=== PATIENT | female | born 1950 | race Caucasian/White ===

== ENCOUNTER 2017-09-14 13:23 | Outpatient (CLI) | payer MEDICARE, BC | END 2017-09-14 13:24 | disposition home or self-care (01) | LOC: BICMAMMO 13:23 | PROVIDERS: ATTEND Plastic Surgery | DX: N63.12 Unspecified lump in the right breast, upper inner quadrant (principal); Z85.3 Personal history of malignant neoplasm of breast ==

== ENCOUNTER → 2017-09-19 | Day surgery (SDC) | payer MEDICARE, BC | LOC: BICULT 07:09 | PROVIDERS: ATTEND Plastic Surgery | PROC: 0HBT3ZX Excision of Right Breast, Percutaneous Approach, Diagnostic (ICD-10-PCS; principal; 2017-09-19) | DX: C50.211 Malignant neoplasm of upper-inner quadrant of right female breast (principal); Z98.890 Other specified postprocedural states | CPT/HCPCS: 19083; 88305; 88341; 88342 ==

== ENCOUNTER 2018-03-29 16:43 | Emergency (ER) | payer MEDICARE, BC ==
[2018-03-29] MEDS ORDERED: Nitrofurantoin Monohyd/M-Cryst 100 MG CAP PO SCH (18:00)
== END 2018-03-29 19:16 | disposition home or self-care (01) ==
LOC: ERS 16:43
DX: N39.0 Urinary tract infection, site not specified (principal); E03.9 Hypothyroidism, unspecified
CPT/HCPCS: 96360

== ENCOUNTER 2018-07-30 10:06 | Inpatient (IN) | payer MEDICARE, BC ==
[2018-07-30 11:10] LABS: Hemoglobin 14.7 g/dL (12.0-16.0); Mean Corpuscular Hemoglobin 29.6 pg (27.0-31.0); Mean Corpuscular Volume 92.4 fL (78.0-98.0); Mean Platelet Volume 7.8 fL (7.4-10.4); Platelet Count 330 thou/uL (130-400); RBC Distribution Width 12.8 % (11.5-14.5); Red Blood Cell (RBC) Count 4.97 mill/uL (4.20-5.40); White Blood Cell (WBC) Count 7.7 thou/uL (4.8-10.8)
--- NOTE | 2018-07-30 11:28 | RAD ---
FXR Chest 1 View Portable History: [Dyspnea] Comparison: Radiograph 2015 Findings: Large layering right pleural effusion. Abnormal masslike opacity left infrahilar region. Ag e-indeterminate right posterior rib fractures. Cardiac silhouette is pushed to the left. Impression: 1. Left perihilar opacity concerning for underlying malignant process. CT of the chest is recommended . 2. Large layering right pleural effusion can be can be malignant nature or due to infection. Code lung nodule
[2018-07-30 11:35] LABS: Band 3 % (5-11); Lymphocytes 16 % (21-51); MDiff Complete? YES; Monocytes 5 % (0-10); Neutrophil 76 % (42-75); Platelet Morphology Comment Appears Adequate
[2018-07-30 11:36] LABS: ALT (SGPT) Less than 7 U/L (8-55); AST (SGOT) 23 U/L (5-34); Alkaline Phosphatase 137 U/L (40-150); Anion Gap 17 mmol/L (10-20); BUN (Urea Nitrogen) 10 mg/dL (9.8-20.1); Bilirubin, Total 0.4 mg/dL (0.2-1.2); CK (CPK) 46 U/L (29-168); Calc. Creatinine Clearance 0 mL/min (70-130); Carbon Dioxide 30 mmol/L (23-31); Chloride 97 mmol/L (98-107); Estimated GFR-MDRD Greater than 90; Globulin 3.2 g/dL (2.4-3.5); Glucose 113 mg/dL (80-115); Potassium 3.4 mmol/L (3.5-5.1); Protein, Total 7.2 g/dL (6.0-8.3); Sodium 141 mmol/L (136-145)
--- NOTE | 2018-07-30 12:23 | CT ---
FCT arteriogram chest with IV contrast and 3-D map imaging HISTORY: Dyspnea. Weakness. Abnormal chest x-ray. Right breast cancer. FINDINGS: There is good contrast opacification pulmonary arteries and thoracic aorta with normal bran todd of the great vessels at the aortic arch. Large amount of right pleural fluid with severe compre ssive atelectasis of the right lung, especially the right lower lobe. Multiple masses involving the r ight middle and upper lobes. The largest is at the right anterior lung base, measuring up to 5.1 cm. Large mass at the medial aspect superior segment left lower lobe is 5.1 x 3.6 cm greatest diameters. A 0.6 cm subpleural nodule is present within the posterior aspect of the left upper lobe. Large destructive mass involving the sternum measures up to 7.4 cm in length by 5.1 cm depth by 4.9 c m. Right breast prosthesis is apparent. Enlarged lymph nodes of the mediastinum including a 1.4 cm prevascular lymph node, a 1.8 cm precarina l lymph node, and a 1.9 cm subcarinal lymph node. Multiple heterogeneous low-density masses within the liver measure up to 2.7 cm in the lateral dome. Degenerative changes of the thoracic spine. Lytic lesion involves the anterior superior aspect of the T4 vertebral body. Old healed right rib fra ctures. IMPRESSION: Extensive metastatic disease, involving masses of each lung, sternal and thoracic vertebr al osseous lesions, mediastinal adenopathy, and liver masses. Large amount of right pleural fluid and compressive atelectasis of the right lung.
[2018-07-30] MEDS ORDERED: Acetaminophen 325 MG TAB PO PRN (16:34)
[2018-07-30] MEDS ORDERED: HYDROcodone/Acetaminophen 7.5/325 mg Tablet PO PRN (16:34)
[2018-07-30] MEDS ORDERED: Ondansetron ODT 4 MG TAB PO PRN (16:34)
[2018-07-30] MEDS ORDERED: Zolpidem Tartrate 5 MG TAB PO PRN (16:34)
[2018-07-30 17:05] LABS: Hemoglobin 13.5 g/dL (12.0-16.0); Mean Corpuscular HGB CONC 32.2 g/dL (32.0-36.0); Mean Corpuscular Hemoglobin 29.7 pg (27.0-31.0); Mean Corpuscular Volume 92.4 fL (78.0-98.0); Mean Platelet Volume 7.6 fL (7.4-10.4); Platelet Count 329 thou/uL (130-400); RBC Distribution Width 12.6 % (11.5-14.5); Red Blood Cell (RBC) Count 4.53 mill/uL (4.20-5.40); White Blood Cell (WBC) Count 6.8 thou/uL (4.8-10.8)
[2018-07-30 17:21] LABS: Band 5 % (5-11); Eosinophils 2 % (0-10); Lymphocytes 23 % (21-51); MDiff Complete? YES; Monocytes 8 % (0-10); Neutrophil 62 % (42-75); Platelet Morphology Comment Appears Adequate; RBC Morphology Normal
--- NOTE | 2018-07-30 17:28 | HP ---
PRIMARY CARE PROVIDER: Dr. Felipe Romero. Referred to the [facility] by [facility] for pleural effusion. The patient's history started several weeks ago with pain under right shoulder blade into her right arm. She denies being pleuritic. Then for about 1 to 2 weeks, she has had shortness of breath with lying down. She has had no fever, chills, cough. Her pain has not been pleuritic. PAST MEDICAL HISTORY: Pertinent for breast cancer on the right with a mastectomy on the right by Dr. Rodgers in February of 2016. She had no postoperative radiation or chemotherapy. She had reconstructive surgery by Dr. Jose Soriano on April and completed 12/08. She has also had hypothyroidism on therapy. She has had L-spine surgery with some neuropathic pain in her legs. CURRENT MEDICATIONS: Listed as: 1. Aspirin 81 mg a day. 2. Synthroid 75 mcg a day. 3. Gabapentin 300 mg one in the morning, two at night. ALLERGIES: NONE LISTED. FAMILY HISTORY: Negative for breast cancer. is at bedside. Full code status. She is not ready to make a decision on resuscitation status. No tobacco. No alcohol. REVIEW OF SYSTEMS: GENERAL: She has had some anorexia with some weight loss over the past month. She has had some mild dizziness. No fainting. EYES: No double vision, blurred vision, flashing lights. EARS, NOSE, AND THROAT: No ear pain or drainage. No nasal bleeding. No trouble swallowing. CARDIAC: No true orthopnea, paroxysmal nocturnal dyspnea. No anterior pressure chest pain. RESPIRATION: Shortness of breath with exertion. No history of wheezing. No history of asthma, COPD. GASTROINTESTINAL: Some nausea with present illness. No emesis. No abdominal pain. No diarrhea or constipation. GENITOURINARY: No hematuria or dysuria. MUSCULOSKELETAL: No pain or swelling in her arms or legs. NEUROLOGIC: No stroke, seizures, or focal weakness. PSYCHIATRIC: No current anxiety or depression. SKIN: No bruising, bleeding, or rash. HEME/LYMPH: No tender or swollen lymph nodes in the axilla, inguinal, or cervical area. PHYSICAL EXAMINATION: VITAL SIGNS: Blood pressure 185/79, pulse 97, respirations 24, temperature 98.6. Her sat on room air is mid 90s. HEENT: Examination of her head, eyes, ears, nose, and throat revealed pupils are equal, round, and reactive to light. Extraocular movements are intact. Sclerae are white. Tympanic membranes are clear. Nose is clear. Oral mucous membranes are wet. Dental hygiene is adequate. NECK: Supple without jugular venous distention, adenopathy, or thyromegaly. CHEST: Dull to upper scapula on the right with marked decreased breath sounds in the area of dullness. Breath sounds are clear on the left. HEART: Has a regular rate and rhythm. First and second heart sounds are clear. There are no appreciated murmurs or gallops. ABDOMEN: Soft. Bowel sounds are normal. No hepatosplenomegaly. No mass. No rebound. No bruits. EXTREMITIES: Reveal no cyanosis, clubbing, or edema. PULSES: Carotid, radial, femoral, and dorsalis pedis pulses intact. SKIN: Warm and dry without bruises or rash. HEME/LYMPH: No tender or swollen lymph nodes in the axilla, inguinal, or cervical area. No petechial hemorrhages. NEUROLOGIC: Cranial nerves 2 through 12 are intact. Deep tendon reflexes symmetric. DIAGNOSTIC DATA: Her chest x-ray reveals the lower 2/3 of the right hemithorax are opacified with apparent layer diffusion which goes up into the apical area. The left lung field reveals a probable mass lesion. There is a lytic lesion in the T4 vertebral body. Reviewed by me. EKG, regular sinus rhythm within normal limits. Reviewed by me. LABORATORY DATA: CBC shows normal except for a mild neutrophilia. Comprehensive metabolic profile; decreased potassium 3.4, decreased chloride 97, otherwise unremarkable. ADMITTING DIAGNOSES: 1. Dyspnea secondary to large right pleural effusion. 2. History of breast cancer with apparent metastatic lesions in the liver, lung and thoracic cage. 3. Elevated blood pressure. 4. Hypothyroidism. PLAN: 1. Consult Pulmonology for thoracentesis, both therapeutic and diagnostic. 2. Oncology consult. Job ID: [id number]
[2018-07-30] MEDS ORDERED: Guaifenesin DM 100-10/5 ML UDCUP PO PRN (17:33)
--- NOTE | 2018-07-30 17:55 | RAD ---
Portable chest 1 view 07/30/2018 at 5:34 PM HISTORY: Pleural effusion. Thoracenteses. FINDINGS: There has been interval improvement in the right-sided pleural effusion since earlier exam of 11:07 A M from the same date. No definite pneumothorax is seen. There is consolidation in the right lower kojo g. Remainder the exam is otherwise stable.
--- NOTE | 2018-07-30 18:34 | CON ---
DATE OF CONSULTATION: HISTORY OF PRESENT ILLNESS: The patient is a pleasant 67-year-old female, who was diagnosed to have breast cancer 3 years ago, underwent surgery. Apparently, it is unclear why there was no followup, but she now presents with symptoms of right breast pain, shortness of breath, back pain, coughing, nausea, and weight loss. She denies any fever or chills. CT of chest shows a very large pleural effusion with evidence of extensive metastatic disease. PAST MEDICAL HISTORY: Pertinent for hypothyroidism, chronic pain, breast cancer, apparently history of multiple sclerosis. PAST SURGICAL HISTORY: Orthopedic surgery, back. SOCIAL HISTORY: Alcohol, none. Tobacco, none. 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 CHRONIC MEDICATION: Gabapentin. ALLERGIES: NONE. REVIEW OF SYSTEMS: Ten-point negative. PHYSICAL EXAMINATION: VITAL SIGNS: Sats are 95%, pulse 80, and blood pressure . CHEST: Decreased breath sounds, right lower two-thirds and left unremarkable. CARDIAC: Normal S1 and S2. No gallops. No masses. GENERAL: She is awake, alert, and responsive. LABORATORY DATA: White count 6000, hemoglobin and hematocrit platelet count 321. Lytes are normal. CT of chest shows evidence of extensive metastatic disease involving both lungs, sternum, thoracic vertebrae. There are adenopathy and liver masses. Large pleural effusion. IMPRESSION: 1. Large pleural effusion with metastatic disease. 2. History of breast cancer. 3. History of multiple sclerosis. 4. History of back surgery. PLAN: Thoracentesis is performed. Oncology will be consulted comfort care. Consultation note, 70 minutes, 50% direct patient care, exclusive of the thoracentesis. Job ID: [id number]
[2018-07-30 18:59] LABS: Pleural Fluid, Protein 4.1 g/dL
[2018-07-30 19:00] LABS: BF Color Yellow; Body Fluid Source Pleural Fluid; Clarity Hazy (Clear); Tube # EDTA
[2018-07-30 19:02] LABS: RBC Background Count 0.004; WBC/NonHematic-Auto 664 /cumm
[2018-07-30 19:03] LABS: BF RBC Count - Manual 398 /cumm
[2018-07-30 19:16] LABS: BF Segmented Neutrophils 7 %; Cell Count Non Hematic 26 %; Lymphocytes 66 %
[2018-07-30 23:47] VITALS: BMI 18.0
[2018-07-31 04:51] LABS: Anion Gap 16 mmol/L (10-20); BUN (Urea Nitrogen) 8 mg/dL (9.8-20.1); Calc. Creatinine Clearance 77 mL/min (70-130); Carbon Dioxide 29 mmol/L (23-31); Chloride 102 mmol/L (98-107); Estimated GFR-MDRD Greater than 90; Glucose 116 mg/dL (80-115); Potassium 3.1 mmol/L (3.5-5.1); Sodium 144 mmol/L (136-145)
--- NOTE | 2018-07-31 07:49 | OP ---
DATE OF PROCEDURE: 07/30/2018 PROCEDURE PERFORMED: Thoracentesis. INDICATION: Pleural effusion. DESCRIPTION OF PROCEDURE: After informed consent from the patient and at the bedside, the right posterior thorax was cleaned with chlorhexidine, 1% Xylocaine was infiltrated into the right 9th intercostal space in the midclavicular area all the way to the pleura. Pleural cavity was entered in and 20 mL of slightly turbid greenish fluid was removed. Thereafter, using an 8-Bruneian catheter and a vacuum bottle, a total of 1600 mL fluid was removed without difficulty. The patient tolerated the procedure well. Fluid was sent for appropriate studies including cytology and culture. Job ID: [id number]
[2018-07-31] MEDS ORDERED: traMADol HCl 50 MG TAB PO PRN (08:52)
[2018-07-31] MEDS ORDERED: Levothyroxine Sodium 75 MCG TAB PO SCH (09:00)
[2018-07-31] MEDS ORDERED: Gabapentin 300 MG CAP PO SCH ×2 (09:00→21:00)
--- NOTE | 2018-07-31 09:40 | PDOC.PN ---
- Subjective Encounter Start Date: 07/31/18 Encounter Start Time: 09:38 Subjective: minimal pain at thoracentesis site, sob resolved - Objective Resuscitation Status - Order Detail: 07/30/18 16:31 Resuscitation Status Routine Resuscitation Status: FULL: Full Resuscitation Discussed with: not ready to make decision MAR Reviewed: Yes Vital Signs & Weight: Vital Signs (12 hours) Temp Pulse Resp BP Pulse Ox 07/31/18 08:00 97.6 F 106 H 18 121/58 L 92 L 07/31/18 04:00 98.1 F 98 18 137/65 100 07/30/18 23:00 93 L 07/30/18 22:35 98 F 108 H 16 141/67 H 93 L Weight Weight 105 lb I&O: 07/30/18 07/31/18 08/01/18 06:59 06:59 06:59 Intake Total 240 Balance 240 Result Diagrams: 07/30/18 16:53 07/31/18 04:17 Phys Exam - Physical Examination Neck: no JVD decreased BS R base, otherwise clear Cardiovascular: RRR, no significant murmur Gastrointestinal: soft, positive bowel sounds Musculoskeletal: no edema Dx/Plan (1) Breast cancer metastasized to multiple sites Code(s): C50.919 - MALIGNANT NEOPLASM OF UNSP SITE OF UNSPECIFIED FEMALE BREAST Status: Acute Qualifiers: Laterality: right Qualified Code(s): C50.911 - Malignant neoplasm of unspecified site of right female breast (2) Pleural effusion Code(s): J90 - PLEURAL EFFUSION, NOT ELSEWHERE CLASSIFIED Status: Acute (3) Dyspnea Code(s): R06.00 - DYSPNEA, UNSPECIFIED Status: Acute Qualifiers: Dyspnea type: dyspnea on exertion Qualified Code(s): R06.09 - Other forms of dyspnea - Plan post thoacentesis. oncology consult * .
[2018-07-31 12:42] VITALS: BP 131/64; TEMP 98
--- NOTE | 2018-07-31 17:05 | DIS ---
DATE OF ADMISSION: 07/30/2018 DATE OF DISCHARGE: 07/31/2018 DISPOSITION: Discharged home. PRIMARY CARE PROVIDER: Felipe Romero MD. FINAL DIAGNOSES: Pleural effusion, right-sided; malignant neoplasm of the right breast; metastasis to the liver; metastasis to the lungs, metastasis to the bones, hypothyroidism. DISCHARGE MEDICATIONS: 1. Tramadol 50 mg p.o. q.6 hours p.r.n. 2. Levothyroxine 75 mcg a day. 3. Gabapentin 600 mg in the evening and 300 in the morning. ALLERGIES: TO MEDICINES, NONE. PENDING AT TIME OF DISCHARGE: Cytology culture studies on pleural effusion. CODE STATUS: Full resuscitation. HOSPITAL COURSE: The patient referred to [facility] by [facility] for shortness of breath, large right pleural effusion, breast cancer with multiple metastatic sites. Dr. Hill was consulted. The patient underwent diagnostic and therapeutic thoracentesis on the evening of 07/30/2018, 1600 mL of fluid was removed. Studies on the fluid include it was hazy, white cell count 664, red cells 398, neutrophils 7%, non-hematological cells 26%, total protein 4.1, LDH 311, glucose 106, amylase 36. Comprehensive metabolic profile was unremarkable. CBC showed a mild neutrophilia. Followup showed a normal CBC. Body fluid culture, no organisms seen. No growth at 12 hours. Pathology specimen is pending. CT of the thorax revealed right pleural effusion, extensive metastatic disease involving masses in each lung, sternal and thoracic osseous lesions, mediastinal adenopathy, liver masses, and a large amount of right pleural fluid. She was seen in consultation by AASHISH Duron for the Oncology Service. She declines adjunctive therapy with chemotherapy or radiotherapy as she did when this was originally diagnosed some 3 years ago. She and her family going to go home and discuss it at length. She has been asked to see her PCP, Dr. Romero in one week for followup with chest x-ray. The patient and family have been given the contact numbers for the Oncology service to call and make an appointment to come in and discuss potential therapy at any time they decide on it. She has been advised that the pleural effusion will likely recur, however, at an unknown rate. Job ID: [id number]
--- NOTE | 2018-07-31 17:16 | CON ---
DATE OF CONSULTATION: REASON FOR CONSULTATION: Metastatic disease. HISTORY OF PRESENT ILLNESS: Ms. Vu is a 67-year-old female, who presented to the emergency department with shortness of breath. CT scan showed a large right pleural effusion. She had multiple masses involving the right middle and upper lobes. She had a large right anterior mass, measuring 5.1 cm. A left lower lobe mass, measuring 5.1 x 3.6 cm. She had a large destructive mass involving the sternum, measuring 7.4 x 5.1 x 4.9 cm. She had mediastinal lymphadenopathy. There were low-density masses in the liver with the largest measuring 2.7 cm. There were lytic lesions involving the T4 vertebral body. She was admitted for further evaluation. Dr. Hill was consulted and performed a therapeutic thoracentesis. Cytology is currently pending. 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 She had a right mastectomy and sentinel lymph node biopsy. Two of the lymph nodes were positive. She was strongly encouraged to consider adjuvant treatment with chemotherapy. However, she declined and has not followed up in our office since 2016. Currently, she states she is feeling much better after thoracentesis. She denies shortness of breath, chest pain. No abdominal discomfort. She admits to about 8-pound weight loss over the last several weeks. PAST MEDICAL HISTORY: 1. Stage III HER2 positive, ER negative, IDC of the right breast, 2016. 2. MS. PAST SURGICAL HISTORY: 1. Right mastectomy. 2. Lower back fusion. 3. Knee surgery. ALLERGIES: NO KNOWN DRUG ALLERGIES. HOME MEDICATIONS: 1. Aspirin 81 mg daily. 2. Synthroid 75 mcg daily. 3. Gabapentin 300 mg every morning and 600 mg nightly. FAMILY HISTORY: Daughter has thyroid cancer. SOCIAL HISTORY: , lives with her spouse. No alcohol, tobacco, or illicit drug use. REVIEW OF SYSTEMS: A 10-point review of systems is negative. PHYSICAL EXAMINATION: VITAL SIGNS: Temperature 98.0, pulse is 92, respiratory rate 18, and BP is 131/64. She is 92% on room air. GENERAL: A well-developed, well-nourished female, in no acute distress. HEENT: Normocephalic and atraumatic. Pupils are equal and reactive to light. NECK: Supple. CV: Regular rate and rhythm. LUNGS: Clear with diminished breath sounds at the right lower lobe. ABDOMEN: Soft and nontender. Bowel sounds are positive. EXTREMITIES: No clubbing, cyanosis, or edema. SKIN: No rash. HEMATOLOGIC: No petechiae or purpura. NEUROLOGIC: Nonfocal. BREASTS: She has a right breast implant. PERTINENT LABS AND X-RAYS: Current WBCs 6.8, hemoglobin 13.5, hematocrit 41.8, platelet count 329,000, 62% neutrophils, 5% bands, 23% lymphocytes. Sodium is 144, potassium is 3.1, chloride is 102, CO2 is 29, BUN is 8, creatinine is 0.53, calcium is 9.0, bilirubin is 0.4, AST is 23, ALT is less than 7, alkaline phosphatase is 137, creatine kinase is 46. BNP is 65. Serum total protein is 7.2, albumin is 4, globulin is 3.2. Cytology on pleural fluid is pending. ASSESSMENT: 1. Probable recurrent metastatic breast cancer. 2. Malignant pleural effusion, status post thoracentesis. DISCUSSION: The patient was seen at bedside with daughter and present. The patient likely has recurrent breast cancer. We discussed that treatment options would include chemotherapy. They are hesitant to discuss it at this time and would prefer to talk about it at home. Our clinic information was provided and they will call us when she has made a decision. I did speak with the daughter alone, who states that it is likely her mother will not do any type of treatment as she declined three years ago as well. We discussed that this pleural effusion will likely recur and she may need palliative care. Follow up with the lung doctor in the outpatient setting. We will be happy to help in any way that we can. I did encourage her to at least make an appointment with Dr. Rouse to discuss treatment options. The patient is planning to be discharged within the next 24 hours. Thank you for the consult. Job ID: [id number]
[2018-07-31] MEDS ORDERED: Non-Formulary Item 1 EACH (Gabapentin [Neurontin] 600 MG) PO SCH (21:00)
--- NOTE | 2018-08-01 11:00 | PQF ---
GAUTAM RO, MAGNOLIA C [id number] [id number] CLINICAL DOCUMENTATION IMPROVEMENT CLARIFICATION FORM: ICD-10 Updated PLEASE DO AN ADDENDUM TO THE PROGRESS NOTE WITH ANY DOCUMENTATION UPDATES OR ADDITIONS AND CARRY THROUGH TO DC SUMMARY. THANK YOU. Date: 08/01/18 ATTN: Dr. Quezada Please exercise your independent, professional judgment in responding to the clarification form. Clinical indicators are provided on the bottom of this form for your review Please check appropriate box(s): [ ] Protein Calorie Malnutrition: [ ] Mild related to new diagnosis of cancer, poor appetite [ ] Other Malnutrition (please specify) __ [ x ] Underweight without malnutrition due to poor appetite, new diagnosis of cancer [ ] Cachexia [ ] Other diagnosis [ ] Unable to determine In addition, please specify: Present on Admission (POA): [ x ] Yes [ ] No [ ] Unable to determine CLINICAL INDICATORS - SIGNS / SYMPTOMS / LABS Underweight per 07/31 RD [facility] Two or More of the Following: Weight Loss--> 07/31 RD: 10# weight loss over the past ~2 weeks RISK FACTORS Change in appetite / nausea / vomiting / diarrhea--> poor appetite Chronic illness admitted with R pleural effusion; breast cancer per d/c summary 07/31 TREATMENT: Dietary consult 07/31 per orders Nutritional supplements--> Ensure Enlive 07/31 orders Moderate Malnutrition (in acute illness) Energy Intake: <75% of estimated energy requirement for > 7 days Weight Loss: 1-2%/1 week; 5%/ 1 month; 7.5%/3 months Other: mild body fat loss; mild muscle mass loss; mild fluid accumulation; Severe Malnutrition (in acute illness) Energy Intake: < 50% of estimated energy requirement for > 5 days Weight Loss: >1-2%/1 week; >5%/1 month; >7.5%/3 months Other: moderate body fat loss; moderate muscle mass loss; moderate- severe fluid accumulation; measurably reduced trash truck driver strength Moderate Malnutrition (in chronic illness) Energy Intake: <75% of estimated energy requirement for >1 month Weight Loss: 5%/1 month; 7.5%/3 months; 10%/6 months; 20%/1 year Other: mild body fat loss; mild muscle mass loss; mild fluid accumulation Severe Malnutrition (in chronic illness) Energy Intake: <75% of estimated energy requirement for >1 month Weight Loss: >5%/1 month; >7.5%/3 months; >10%/6 months; >20%/1 year Other: severe body fat loss; severe muscle mass loss; severe fluid accumulation ; measurably reduced trash truck driver strength (This form is maintained as a part of the permanent medical record) 2014 [employer]. All Rights Reserved Carol Peterson RN, BSN, CCDS [email or web address] [phone] MTDD
== END 2018-07-31 16:30 | disposition home or self-care (01) | DRG 598 ==
LOC: ERS 10:06 → ERHOLD 13:39 → ONC 22:37
PROVIDERS: ADMIT Family Medicine; ATTEND Family Medicine
PROC: 0W993ZZ Drainage of Right Pleural Cavity, Percutaneous Approach (ICD-10-PCS; principal; 2018-07-30)
DX: C50.911 Malignant neoplasm of unspecified site of right female breast (principal); C78.7 Secondary malignant neoplasm of liver and intrahepatic bile duct; C78.00 Secondary malignant neoplasm of unspecified lung; C79.51 Secondary malignant neoplasm of bone; J90 Pleural effusion, not elsewhere classified; J91.0 Malignant pleural effusion; E03.9 Hypothyroidism, unspecified; G35 Multiple sclerosis
CPT/HCPCS: 36415; 71045; 71275; 80048; 80053; 82150; 82550; 82945; 83615; 83880; 83986; 84157; 84478; 84484; 85025; 85060; 87070; 87102; 87116; 87205; 87206; 88112; 88305; 89051; 93005; J1642

== ENCOUNTER 2018-08-14 09:07 | Emergency (ER) | payer MEDICARE, BC ==
[2018-08-14 09:55] LABS: #Eosinphils 0.1 thou/uL (0.0-0.7); #Lymphocytes 0.7 thou/uL (1.20-3.40); #Monocytes 0.7 thou/uL (0.11-0.59); #Neutrophils 5.5 thou/uL (1.40-6.50); %Basophils 0.4 % (0.0-1.0); %Eosinophils 1.2 % (0.0-10.0); %Lymphocytes 9.4 % (21.0-51.0); %Monocytes 9.9 % (0.0-10.0); %Neutrophils 79.1 % (42.0-75.0); Hemoglobin 13.8 g/dL (12.0-16.0); Mean Corpuscular HGB CONC 32.3 g/dL (32.0-36.0); Mean Corpuscular Hemoglobin 29.4 pg (27.0-31.0); Mean Corpuscular Volume 91.1 fL (78.0-98.0); Mean Platelet Volume 6.9 fL (7.4-10.4); Platelet Count 397 thou/uL (130-400); RBC Distribution Width 12.2 % (11.5-14.5); Red Blood Cell (RBC) Count 4.68 mill/uL (4.20-5.40)
--- NOTE | 2018-08-14 10:10 | RAD ---
PORTABLE CHEST 1 VIEW: DATE: 08/14/2018. TIME: 9:50 a.m. HISTORY: Dyspnea. Pleural effusion. FINDINGS: Comparison is made with the exam of 08/13/2018. Right-sided pleural effusion is unchanged. Lung mass es again seen. IMPRESSION: Stable exam. POS: TPC
[2018-08-14 10:20] LABS: ALT (SGPT) Less than 7 U/L (8-55); AST (SGOT) 22 U/L (5-34); Albumin 3.3 g/dL (3.4-4.8); Alkaline Phosphatase 126 U/L (40-150); Anion Gap 16 mmol/L (10-20); BUN (Urea Nitrogen) 11 mg/dL (9.8-20.1); Bilirubin, Total 0.4 mg/dL (0.2-1.2); Calc. Creatinine Clearance 0 mL/min (70-130); Calcium 9.7 mg/dL (7.8-10.44); Carbon Dioxide 31 mmol/L (23-31); Chloride 93 mmol/L (98-107); Estimated GFR-MDRD Greater than 90; Globulin 3.2 g/dL (2.4-3.5); Glucose 111 mg/dL (80-115); Protein, Total 6.5 g/dL (6.0-8.3); Sodium 137 mmol/L (136-145)
--- NOTE | 2018-08-14 11:29 | CON ---
DATE OF CONSULTATION: HISTORY OF PRESENT ILLNESS: Sukhjinder Whittaker is a 67-year-old female, who was just recently discharged from the hospital on 08/01. She goes to see a primary care physician yesterday. X-ray shows right pleural effusion recurrent, two-thirds up the chest. She says she had difficulty breathing and cough but no fever, chills, or chest pain. The attending physician as per the discharge had a lengthy discussion with the patient regarding extensive metastatic disease. She wanted no treatment. She wanted palliative care. Unfortunately, she was a full code. She is now back in the hospital ER with difficulty breathing. X-ray in the ER shows right pleural effusion. HOME MEDICATIONS: Includes: 1. Tramadol 50. 2. Synthroid 75. 3. Gabapentin 600. PAST MEDICAL HISTORY: Previous records are extensive and well outlined includes past medical history of breast cancer, recurrent right pleural effusion, hypothyroidism, history of multiple sclerosis. PAST SURGICAL HISTORY: Thoracentesis, back surgery. SOCIAL HISTORY: Alcohol and tobacco, none. ALLERGIES: NONE. REVIEW OF SYSTEMS: Otherwise, 10-point negative in the ER. PHYSICAL EXAMINATION: GENERAL: She appears in no acute distress. VITAL SIGNS: Sats are 90%, pulse 80, blood pressure 130/80. CHEST: Decreased breath sounds in the right lung, left unremarkable. CARDIAC: Normal S1, S2. No gallops. ABDOMEN: No masses. LABORATORY DATA: White count 7000, H and H is normal. Lytes are normal. X-ray shows a large pleural effusion. IMPRESSION: 1. Metastatic breast cancer, extensive recurrent right pleural effusion. 2. Refused treatment for metastatic breast cancer. 3. History of multiple sclerosis. PLAN: I consulted Cardiovascular Surgery, Dr. Jas Whittaker, to insert a tunneled catheter on the right chest for home drainage of pleural effusion, which should be done today. She is n.p.o. Hopefully, she can be discharged home thereafter. Otherwise, comfort care. Consultation note, 70 minutes, 50% direct patient care. Job ID: [id number]
[2018-08-14] MEDS ORDERED: CEFAZOLIN 1 GM in Sodium Chloride 0.9% 100 ML IVPB SCH (13:15)
[2018-08-14] MEDS ORDERED: CEFAZOLIN 1 GM VIAL SLOW IVP SCH (14:00)
[2018-08-14] MEDS ORDERED: Lidocaine 1% (PF) 30 ML VIAL ONE (14:28)
[2018-08-14] MEDS ORDERED: PROPOFOL 200 MG/20 ML VIAL ONE (14:30)
[2018-08-14] MEDS ORDERED: Sodium Chloride 0.9% 0 ML ONE (14:42)
--- NOTE | 2018-08-14 16:02 | PRG ---
DATE OF SERVICE: 08/14/2018 SUBJECTIVE: The patient was seen in the recovery room status post pleural catheter, 1600 mL of bloody effusion removed. She is much better, less short of breath. OBJECTIVE: VITAL SIGNS: Saturations are 91% on room air, pulse 80, blood pressure 140/80, and respiratory rate 18. GENERAL: is at the bedside. Findings were discussed. CHEST: Decreased breath sounds. No wheezing. CARDIAC: Normal S1 and S2. No gallops. ABDOMEN: No masses. IMPRESSION: 1. Extensive metastatic cancer. 2. Recurrent right pleural effusion status post pleural cath. PLAN: Home. Follow up with primary care physician. Follow up with hospice as needed. Pulmonary will follow as needed. Job ID: [id number]
--- NOTE | 2018-08-14 16:08 | CON ---
DATE OF CONSULTATION: 08/14/2018 HISTORY OF PRESENT ILLNESS: Ms. 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 She underwent a thoracentesis of 1600 mL of bloody fluid with good re-expansion of the lung. She returns today with further shortness of breath and cough. She has also had difficulty swallowing due to pressure sensation. Chest x-ray shows recurrent large right pleural effusion. I have been asked to see her to place a PleurX catheter. PAST MEDICAL HISTORY: 1. Metastatic breast cancer. 2. Hypothyroidism. 3. Multiple sclerosis. 4. Back pain, status post multiple interventions and surgeries. PAST SURGICAL HISTORY: 1. Back surgery. 2. Right thoracentesis. SOCIAL HISTORY: She does not use alcohol or tobacco. ALLERGIES: NONE. MEDICATIONS: At home: 1. Tramadol 50 mg q.8 hours p.r.n. pain. 2. Gabapentin 600 mg t.i.d. 3. Synthroid 75 mcg q.a.m. PHYSICAL EXAMINATION: GENERAL: This is a diminutive woman, resting fairly comfortably in the emergency department. LUNGS: Decreased breath sounds on the right. HEART: Rhythm is regular. She is in sinus tachycardia. ABDOMEN: Soft, scaphoid, nontender. EXTREMITIES: Reveals no edema. Chest x-ray shows a large right pleural effusion. ASSESSMENT AND PLAN: Recurrent malignant right pleural effusion. I have discussed PleurX catheter placement, home management, and the access to bottles with the patient and her family. They are agreeable for us to proceed. They understand they will have to drain the catheter without assistance at home and feel comfortable with this. Job ID: [id number]
--- NOTE | 2018-08-14 17:36 | OP ---
DATE OF PROCEDURE: 08/14/2018 PREOPERATIVE DIAGNOSIS: Recurrent malignant right pleural effusion. POSTOPERATIVE DIAGNOSIS: Recurrent malignant right pleural effusion. PROCEDURE PERFORMED: Right PleurX catheter placement. ANESTHESIA: 1% lidocaine for local with IV sedation provided by Dr. Juan Jose Escoto. ESTIMATED BLOOD LOSS: Minimal. DESCRIPTION OF PROCEDURE: After consent was obtained, the patient was brought to the operating room, placed in supine position on the operating table. Appropriate central line was placed. IV sedation was begun. Right chest wall was prepped and draped in usual sterile fashion. Skin and subcutaneous tissue were anesthetized with 1% lidocaine. Appropriate chest entrance site was selected in the pericostal tissue anesthetized with 1% lidocaine. A guidewire was placed in the chest cavity. Catheter was tunneled from the midclavicular line laterally. The catheter was then placed in over the peel-away sheath and sheath removed. Catheter was aspirated and 1600 mL of bloody fluid evacuated from the right chest. The catheter was secured with a silk stitch to her skin. Sterile dressings were applied. The patient tolerated the procedure well, was transferred to the recovery room in stable condition. Job ID: [id number]
== END 2018-08-14 17:00 | disposition admitted as inpatient to this hospital (09) ==
LOC: ERS 09:07
DX: J90 Pleural effusion, not elsewhere classified (principal); E03.9 Hypothyroidism, unspecified; Z79.899 Other long term (current) drug therapy
CPT/HCPCS: 71045; 80053; 85025; C1729; J2001; J2704; J3490

== ENCOUNTER 2018-10-11 17:36 | Emergency (ER) | payer MEDICARE, BC ==
[~2018-10-11 17:36] MED LIST: ISOVUE-370 76%-LOCM 1 ML ONE
[2018-10-11 18:35] LABS: #Lymphocytes 0.5 thou/uL (1.20-3.40); #Monocytes 0.8 thou/uL (0.11-0.59); #Neutrophils 8.8 thou/uL (1.40-6.50); %Basophils 0.3 % (0.0-1.0); %Eosinophils 0.2 % (0.0-10.0); %Lymphocytes 4.9 % (21.0-51.0); %Monocytes 8.1 % (0.0-10.0); %Neutrophils 86.5 % (42.0-75.0); Hemoglobin 11.8 g/dL (12.0-16.0); Mean Corpuscular HGB CONC 31.9 g/dL (32.0-36.0); Mean Corpuscular Hemoglobin 29.5 pg (27.0-31.0); Mean Corpuscular Volume 92.4 fL (78.0-98.0); Mean Platelet Volume 7.7 fL (7.4-10.4); Platelet Count 342 thou/uL (130-400); RBC Distribution Width 14.9 % (11.5-14.5); Red Blood Cell (RBC) Count 3.99 mill/uL (4.20-5.40); White Blood Cell (WBC) Count 10.2 thou/uL (4.8-10.8)
--- NOTE | 2018-10-11 18:51 | RAD ---
PORTABLE CHEST: 10/11/18 HISTORY: Elevated heart rate and syncope. COMPARISON: 10/01/18 study. Heart size is slightly enlarged. There is left infrahilar lung changes which appears stable as compar ed to that prior exam. The opacification in the right mid and lower lung zones appear slightly worsen and some or all of this is probably technique related. IMPRESSION: Fairly stable exam. Slight increased opacification of the right base which may be at least partially be technique related. Left sided pulmonary masses appear stable. POS: OFF
[2018-10-11 18:59] LABS: ALT (SGPT) 13 U/L (8-55); AST (SGOT) 37 U/L (5-34); Albumin 3.1 g/dL (3.4-4.8); Alkaline Phosphatase 493 U/L (40-150); Anion Gap 19 mmol/L (10-20); BUN (Urea Nitrogen) 13 mg/dL (9.8-20.1); Bilirubin, Total 0.5 mg/dL (0.2-1.2); Calc. Creatinine Clearance 0 mL/min (70-130); Calcium 8.8 mg/dL (7.8-10.44); Carbon Dioxide 24 mmol/L (23-31); Chloride 99 mmol/L (98-107); Estimated GFR-MDRD Greater than 90; Globulin 2.5 g/dL (2.4-3.5); Glucose 95 mg/dL (80-115); Potassium 3.5 mmol/L (3.5-5.1); Protein, Total 5.6 g/dL (6.0-8.3); Sodium 138 mmol/L (136-145)
--- NOTE | 2018-10-11 20:12 | CT ---
CT ANGIO OF CHEST PERFORMED WITH INTRAVENOUS CONTRAST ENHANCEMENT WITH 3D RECONSTRUCTIONS: 10/11/18 HISTORY: Syncopal episode. Elevated heart rate. History of right breast cancer. COMPARISON: A 07/30/18 study. The size of the right sided pleural effusion has diminished but components of it have a loculated rios earance. There is atelectatic change involving the right lower lobe. The mass-like area of consolidat ion in the right hilar region appears slightly more prominent. The sternal mass has increased in size with extensive destructive bony change of the sternum. Mediastinal lymphadenopathy is also increased . This is best demonstrated in the aorticopulmonary window region. The largest node was 14 [address]ley rt axis dimension. There is now several nodes that are in the 16 to 17 mm size range. There is also internal increase in the right paratracheal and subcarinal adenopathy. Subcarinal nodes measure 15 mm in short axis dimension but causing more significant impression on the pulmonary artery in this jeanne on. The left lower lobe lung mass measured 5.1 cm in maximum dimension on the prior examination simil ar in size measuring in the 5 cm range. The superior segment left upper lobe pulmonary nodule has def initely increased in size from approximately 4 to 5 mm to approximately 10 mm. Several other nodules have also increased. The thoracic aorta is normal in caliber. There is good pulmonary artery opacification with no CT ev idence for pulmonary embolus. There also appears to be worsening lytic bony change in the upper thor acic spine region. Innumerable liver lesions are visualized. Some of which do appear larger as compared to the prior exa m. IMPRESSION: 1. No CT evidence for pulmonary embolus. 2. Worsening metastatic disease. POS: OFF
[2018-10-11 21:25] LABS: Bilirubin Small (Negative); Blood, Urine Negative (Negative); Clarity Clear (Clear); Glucose, Urine (Dipstick) Negative (Negative); Leukocyte Negative (Negative); Nitrite Negative (Negative); Protein, Urine (Dipstick) Trace mg/dL (Neg-Trace); pH, Urine 6.5 (5.0-9.0)
[2018-10-11 21:27] LABS: Specific Gravity, Urine Greater than 1.060 (1.002-1.036)
--- NOTE | 2018-10-13 11:05 | EKG ---
Test Reason : Blood Pressure : / mmHG Vent. Rate : 108 BPM Atrial Rate : 108 BPM P-R Int : 128 ms QRS Dur : 068 ms QT Int : 352 ms P-R-T Axes : 058 073 080 degrees QTc Int : 471 ms Sinus tachycardia with Premature atrial complexes Low voltage QRS Cannot rule out Anterior infarct , age undetermined Abnormal ECG Confirmed by IVAN PARK ([id number]), communications editor OCTAVIA MATIAS ([id number]) on 10/13/2018 11:05:33 AM Referred By: Confirmed By:IVAN PARK
== END 2018-10-11 23:01 | disposition home or self-care (01) ==
LOC: ERS 17:36
DX: E86.0 Dehydration (principal); C50.919 Malignant neoplasm of unspecified site of unspecified female breast; E03.9 Hypothyroidism, unspecified; Z79.899 Other long term (current) drug therapy
CPT/HCPCS: 36415; 51701; 71045; 71275; 80053; 81003; 84484; 85025; 93005; 96360; A4353; Q9966